=== PATIENT | female | born 1990 | race African-American/Black ===

== ENCOUNTER 2023-06-16 19:18 | Emergency (ER) | payer OTHER, BC, SELFPAY ==
[2023-06-16 19:19] VITALS: BP 129/83
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
[2023-06-16] MEDS: MOTRIN 600 MG PO (20:48)
[2023-06-16] MEDS: FLEXERIL 5 MG PO (21:09)
== END 2023-06-16 21:22 | disposition home or self-care (01) ==
LOC: EMR 19:18
PROVIDERS: EMERGENCY PHYSICIAN Student in an Organized Health Care Education/Training Program; FAMILY PHYSICIAN Family Medicine
DX: M25.571 Pain in right ankle and joints of right foot (principal); S70.11XA Contusion of right thigh, initial encounter; V49.40XA Driver injured in collision with unspecified motor vehicles in traffic accident, initial encounter; Y92.410 Unspecified street and highway as the place of occurrence of the external cause
CPT/HCPCS: 99283; 71046; 73564; 73590; 73610